=== PATIENT | female | born 1930 | race Caucasian/White ===

== ENCOUNTER 2016-05-29 21:38 | Emergency (ER) | payer MEDICARE, OTHER ==
[~2016-05-29] VITALS: Ht 162.6 cm; Wt 87.8 kg
[~2016-05-29 21:38] MED LIST: AMLO5TAB22 PO; ASPI325T PO; ATEN-100 PO; ENAL20TA81 PO; FOLI1TAB PO; NOVONP2 SQ; SYNT88TA PO; TAMS0.4C4; TERA1CAP3 PO; Z.0.OXYGENDME NC
[2016-05-29 21:42] VITALS: BP 134/61; PULSE 66; RESP 20; TEMP 99; O2SAT 96
[2016-05-29 21:50] VITALS: RESP 18; O2SAT 95
[2016-05-29] MEDS ORDERED: SODIUM CHLORIDE 0.9% FLUSH 5 ML FLUSH IVF PRN (22:00)
[2016-05-29] MEDS ORDERED: FUROSEMIDE 20 MG/2 ML VIAL IVP ONE (22:00)
--- NOTE | 2016-05-29 22:01 | PD ---
HPI . Swelling of her legs Chief Complaint: edema Time Seen by Provider: 21:46 Travel History International Travel<30 days: No Contact w/Intl Traveler<30days: No History of Present Illness HPI Patient presents complaining of swelling of her legs. She denies any difficulty breathing or chest pain. She states that she does not take a fluid pill. In addition, the patient is complaining with difficulty urinating. She reports urinary frequency and hesitancy but denies dysuria or malodorous urine. She has not been running a fever. PFSH Past Medical History Autoimmune Disease: No Heart Rhythm Problems: No Cancer: Yes Cardiovascular Problems: Yes High Cholesterol: Yes Chemotherapy: No Chest Pain: No Congestive Heart Failure: No Diabetes: Yes Diminished Hearing: No Endocrine: Yes Gastrointestinal Disorders: Yes (H/O COLLITIS) Genitourinary: Yes (urinary retention this admission) Hypertension: Yes Immune Disorder: No Implanted Vascular Access Dvce: No Musculoskeletal: No Neurologic: No Psychiatric: No Reproductive: No Respiratory: Yes Radiation Therapy: Yes Thyroid Disease: Yes Menopausal: Yes Past Surgical History Abdominal Surgery: Yes (appendectomy age 21) Appendectomy: Yes Endocrine Surgery: Yes (right parotid gland removed 10 years ago) Gynecologic Surgery: Yes (right breast lumpectomy about 6 yrs ago) Oral Surgery: Yes (tonsillectomy age 12) Tonsillectomy: Yes Other Surgery: Yes (left corotid surgery, March 16, 2013) Social History Alcohol Use: No Tobacco Use: Yes (<1PPD) Substance Use: No Allergies-Medications (Allergen,Severity, Reaction): Coded Allergies: Penicillin (Verified Allergy, Intermediate, Itching, 05/29/16) SWELLING IN HANDS AND FACE Sulfa (Verified Allergy, Intermediate, Hives, 05/29/16) SWELLING IN HANDS AND FACE Ciprofloxacin (Verified Allergy, Unknown, 05/29/16) Clindamycin (Verified Allergy, Unknown, 05/29/16) Metformin (Verified Allergy, Unknown, 05/29/16) Zetia (Verified Allergy, Unknown, 05/29/16) Clonidine (Verified Adverse Reaction, Intermediate, 05/29/16) pt states she can't take this, it caused "very unusual behavior", I found myself on the floor, wrapped in my blanket" Uncoded Allergies: STATINS (Allergy, Severe, 02/21/13) Reported Meds & Prescriptions Reported Meds & Active Scripts Active Lasix (Furosemide) 20 Mg Tab 20 Mg PO DAILY Reported Novolog Inj (Insulin Aspart) 1,000 Unit/10 Ml Vial 0 SQ DIRECTED Sliding Scale as directed. Novolin N Inj (Insulin Human NPH) 1,000 Unit/10 Ml Vial 25 Units SQ AC DINNER Novolin N Inj (Insulin Human NPH) 1,000 Unit/10 Ml Vial 60 Units SQ AC BREAKFAST Levothyroxine (Levothyroxine Sodium) 88 Mcg Tab 88 Mcg PO DAILY Terazosin (Terazosin HCl) 1 Mg Cap 1 Mg PO HS Tamsulosin (Tamsulosin HCl) 0.4 Mg Cap 0.4 Mg PO HS Enalapril (Enalapril Maleate) 20 Mg Tab 20 Mg PO BID Aspirin 81 Mg Tabdr 81 Mg PO DAILY Atenolol 25 Mg Tab 25 Mg PO BID Amlodipine (Amlodipine Besylate) 5 Mg Tab 5 Mg PO BID Review of Systems Except as stated in HPI: all other systems reviewed are Neg General / Constitutional: No: Fever, Chills Cardiovascular: No: Chest Pain or Discomfort Respiratory: No: Shortness of Breath (she has COPD and states that her breathing is no different today than usual.) Gastrointestinal: No: Nausea, Vomiting Genitourinary: Positive: Urgency, Frequency, Hesitancy, No: Dysuria Musculoskeletal: Positive: Edema Physical Exam Narrative GENERAL: Healthy-appearing older woman who is in no acute distress. She is very hard of hearing. SKIN: Warm and dry. HEAD: Atraumatic. Normocephalic. EYES: Pupils equal and round. ENT: No nasal bleeding or discharge. Mucous membranes pink and moist. NECK: Trachea midline. Neck is supple. CARDIOVASCULAR: Regular rate and rhythm. Heart sounds are normal. RESPIRATORY: No accessory muscle use. Lungs are clear with full air movement throughout. GASTROINTESTINAL: Abdomen soft, non-tender, nondistended. There is no abdominal wall edema. MUSCULOSKELETAL: No obvious deformities. Trace pretibial pitting edema. NEUROLOGICAL: Awake and alert. No obvious cranial nerve deficits. Motor grossly within normal limits. Normal speech. PSYCHIATRIC: Appropriate mood and affect; insight and judgment normal. Data Data Last Documented VS Vital Signs Date Time Temp Pulse Resp B/P Pulse Ox O2 Delivery O2 Flow Rate FiO2 05/29/16 21:50 60 20 05/29/16 21:50 95 Room Air 05/29/16 21:42 99.0 134/61 Orders Complete Blood Count With Diff (05/29/16 21:55) Basic Metabolic Panel (Bmp) (05/29/16 21:55) B-Type Natriuretic Peptide (05/29/16 21:55) Ckmb (Isoenzyme) Profile (05/29/16 21:55) Troponin I (05/29/16 21:55) Urinalysis - C+S If Indicated (05/29/16 21:55) Iv Access Insert/Monitor (05/29/16 21:55) Electrocardiogram (05/29/16 21:55) Ecg Monitoring (05/29/16 21:55) Oximetry (05/29/16 21:55) Oxygen Administration (05/29/16 21:55) Chest, Single Ap (05/29/16 21:55) Sodium Chloride 0.9% Flush (Ns Flush) (05/29/16 22:00) Furosemide Inj (Lasix Inj) (05/29/16 22:00) Labs Laboratory Tests Test 05/29/16 05/29/16 22:18 22:50 White Blood Count 9.8 TH/MM3 Red Blood Count 4.63 MIL/MM3 Hemoglobin 13.3 GM/DL Hematocrit 38.7 % Mean Corpuscular Volume 83.7 FL Mean Corpuscular Hemoglobin 28.8 PG Mean Corpuscular Hemoglobin 34.4 % Concent Red Cell Distribution Width 13.4 % Platelet Count 151 TH/MM3 Mean Platelet Volume 12.5 FL Neutrophils (%) (Auto) 61.5 % Lymphocytes (%) (Auto) 23.5 % Monocytes (%) (Auto) 7.6 % Eosinophils (%) (Auto) 3.8 % Basophils (%) (Auto) 3.6 % Neutrophils # (Auto) 6.0 TH/MM3 Lymphocytes # (Auto) 2.3 TH/MM3 Monocytes # (Auto) 0.7 TH/MM3 Eosinophils # (Auto) 0.4 TH/MM3 Basophils # (Auto) 0.4 TH/MM3 CBC Comment DIFF FINAL Differential Comment Sodium Level 142 MEQ/L Potassium Level 3.7 MEQ/L Chloride Level 104 MEQ/L Carbon Dioxide Level 30.1 MEQ/L Anion Gap 8 MEQ/L Blood Urea Nitrogen 23 MG/DL Creatinine 0.93 MG/DL Estimat Glomerular Filtration 57 ML/MIN Rate Random Glucose 243 MG/DL Calcium Level 8.5 MG/DL Total Creatine Kinase 54 U/L Troponin I LESS THAN 0.02 NG/ML B-Type Natriuretic Peptide 83 PG/ML Urine Color STRAW Urine Turbidity CLEAR Urine pH 6.0 Urine Specific [place] 1.007 Urine Protein NEG mg/dL Urine Glucose (UA) 250 mg/dL Urine Ketones NEG mg/dL Urine Occult Blood NEG Urine Nitrite NEG Urine Bilirubin NEG Urine Leukocyte Esterase TRACE Urine RBC 0-2 /hpf Urine WBC 3-5 /hpf Urine Squamous Epithelial 0-5 /hpf Cells Urine Bacteria NONE /hpf Microscopic Urinalysis Comment CULT NOT INDICATED MDM Medical Decision Making Medical Screen Exam Complete: Yes Emergency Medical Condition: Yes Interpretation(s) EKG shows sinus bradycardia. No ST segment elevation or depression. EKG is unchanged from previous. Differential Diagnosis Differential diagnosis includes but is not limited to congestive heart failure, vascular insufficiency, hypoalbuminemia. Narrative Course Patient presents for evaluation of extremity edema. She is also complaining with some urinary symptoms. She states that she frequently has problems with urine. I have ordered an evaluation for CHF. I have also ordered a UA. Last Impressions Chest X-Ray 05/29/162154 Signed Impressions: Service Date/Time: Sunday, May 29, 2016 21:59 - CONCLUSION: No infiltrates seen. Peter Gomez MD CXR independently viewed by me. CBC & BMP Diagram 05/29/16 22:18 CK and troponin are normal. BNP is 83. UA shows trace leukocyte esterase. As she is symptomatic as far as her urine is concerned, I will treat her with Keflex. Diagnosis Primary Impression: Peripheral edema Additional Impression: Increased urinary frequency Patient Instructions: General Instructions, Leg Edema (ED) Scripts Cephalexin (Keflex)500 Mg [id number] Mg PO Q8H #15 CAP Ref 0 Prov:Kavita Jones MD 05/29/16 Furosemide (Lasix)20 Mg Tab20 Mg PO DAILY #30 TAB Ref 0 Prov:Kavita Jones MD 05/29/16 Disposition: 01 DISCHARGE HOME Condition: Stable Kavita Jones MD May 29, 2016 22:01
[2016-05-29] MEDS ORDERED: ENAL20TA PO (22:20)
[2016-05-29] MEDS ORDERED: LEVO88TA2 PO (22:20)
[2016-05-29] MEDS ORDERED: ATEN25TA PO (22:20)
[2016-05-29] MEDS ORDERED: AMLO5TAB2 PO (22:20)
[2016-05-29] MEDS ORDERED: ASPI1TAB69 PO (22:20)
[2016-05-29] MEDS ORDERED: NOVOLOGP2 SQ (22:20)
[2016-05-29] MEDS ORDERED: TAMS0.4C4 PO (22:20)
[2016-05-29] MEDS ORDERED: NOVONP2 SQ ×2 (22:20)
[2016-05-29] MEDS ORDERED: TERA1CAP3 PO (22:20)
--- NOTE | 2016-05-29 22:22 | RADHPO ---
EXAM DATE/TIME: 05/29/2016 21:59 [facility] COMPARISON: No previous studies available for comparison. INDICATIONS : Shortness of breath, bilateral swelling of the ankles. MEDICAL HISTORY : Chronic obstructive pulmonary disease. Emphysema. Cardiovascular disease. Hypertension. Hypercho lesterolemia. SURGICAL HISTORY : Tonsillectomy. Appendectomy. Carotid, right, unspecified. Breast, bilateral, unspecified. ENCOUNTER: Initial ACUITY: 1 day PAIN SCORE: 0/10 LOCATION: Chest. FINDINGS: A single view of the chest demonstrates the lungs to be symmetrically aerated without evidence of mas s, infiltrate or effusion. The cardiomediastinal contours are unremarkable. Osseous structures are intact. CONCLUSION: No infiltrates seen. Peter Gomez MD on May 29, 2016 at 22:20 Board Certified Radiologist. This report was verified electronically.
[2016-05-29 22:28] LABS: BASOPHIL # 0.4 TH/MM3 (0-0.2); BASOPHIL % 3.6 % (0.0-2.0); EOSINOPHIL # 0.4 TH/MM3 (0-0.4); EOSINOPHIL % 3.8 % (0.0-4.0); HEMATOCRIT 38.7 % (35.0-46.0); HEMO FLAGS DIFF FINAL; LYMPH % 23.5 % (9.0-44.0); LYMPHOCYTE # 2.3 TH/MM3 (1.0-4.8); MEAN CELL VOLUME 83.7 FL (80.0-100.0); MEAN CORPUSCULAR HEMOGLOBIN 28.8 PG (27.0-34.0); MEAN CORPUSCULAR HGB CONC 34.4 % (32.0-36.0); MONO % 7.6 % (0.0-8.0); NEUT % 61.5 % (16.0-70.0); PLATELET COUNT 151 TH/MM3 (150-450); RED BLOOD COUNT 4.63 MIL/MM3 (4.00-5.30); RED CELL DISTRIBUTION WIDTH 13.4 % (11.6-17.2); WHITE BLOOD COUNT 9.8 TH/MM3 (4.0-11.0)
[2016-05-29 22:33] LABS: CHLORIDE 104 MEQ/L (98-107); POTASSIUM 3.7 MEQ/L (3.5-5.1); SODIUM (NA) 142 MEQ/L (136-145)
[2016-05-29 22:36] LABS: ANION GAP 8 MEQ/L (5-15); BICARBONATE 30.1 MEQ/L (21.0-32.0); BLOOD UREA NITROGEN 23 MG/DL (7-18)
[2016-05-29 22:40] LABS: GLOMERULAR FILTRATION RATE 57 ML/MIN (>89)
[2016-05-29 22:45] LABS: CREATINE KINASE 54 U/L (26-192)
[2016-05-29] MEDS ORDERED: FURO1TAB62 PO (22:48)
[2016-05-29 22:55] LABS: BLOOD, URINE NEG (NEG); GLUCOSE,URINE 250 mg/dL (NEG); KETONE, URINE NEG (NEG); NITRITE,URINE NEG (NEG)
[2016-05-29 23:02] LABS: RBC, URINE 0-2 /hpf (0-3); URINE COLOR STRAW (YELLW/STRAW)
[2016-05-29 23:03] LABS: COMMENT (UR) CULT NOT INDICATED; CULTURE IF INDICATED CULT NOT INDICATED; SQUAMOUS EPITHELIAL CELL URINE 0-5 /hpf (0-5)
[2016-05-29] MEDS ORDERED: CEPH-460 PO (23:20)
[2016-05-29 23:35] VITALS: BP 147/64; PULSE 58; RESP 18; O2SAT 95
--- NOTE | 2016-05-30 13:13 | EKG ---
Date Performed: 05/29/2016 Time Performed: 22:03:24 PTAGE: 85 years EKG: Sinus bradycardia Normal ECG except for rate Compared to prior tracing no significant abida portillo PREVIOUS TRACING : 07/16/2015 10.44 DOCTOR: Carl Melton Interpretating Date/Time 05/30/2016 13:10:39
== END 2016-05-29 23:36 | disposition home or self-care (01) ==
LOC: PHED 21:38
DX: R60.0 Localized edema (principal); R35.0 Frequency of micturition; E78.00 Pure hypercholesterolemia, unspecified; E11.9 Type 2 diabetes mellitus without complications; I10 Essential (primary) hypertension; F17.210 Nicotine dependence, cigarettes, uncomplicated
CPT/HCPCS: 71010; 80048; 81001; 82550; 83880; 84484; 85025; 93005; 96374; 99284; J1940

== ENCOUNTER 2016-11-20 20:27 | Emergency (ER) | payer OTHER ==
[~2016-11-20] VITALS: Ht 162.6 cm; Wt 83.9 kg
[~2016-11-20 20:27] MED LIST changes: +AMLO5TAB2 PO; -AMLO5TAB22 PO; +ASPI1TAB69 PO; -ASPI325T PO; -ATEN-100 PO; +ATEN25TA PO; +CEPH-460 PO; +ENAL20TA PO; -ENAL20TA81 PO; -FOLI1TAB PO; +FURO1TAB62 PO; +LEVO88TA2 PO; +NOVOLOGP2 SQ; -SYNT88TA PO; -TAMS0.4C4; +TAMS0.4C4 PO; -Z.0.OXYGENDME NC
[2016-11-20 20:40] VITALS: BP 154/70; PULSE 65; RESP 18; TEMP 98.4; O2SAT 96
[2016-11-20] MEDS ORDERED: SODIUM CHLORIDE 0.9% FLUSH 10 ML FLUSH IV FLUSH PRN (21:00)
--- NOTE | 2016-11-20 21:02 | PD ---
HPI Chief Complaint: Complaint Time Seen by Provider: 20:50 Travel History International Travel<30 days: No Contact w/Intl Traveler<30days: No Traveled to known affect area: No History of Present Illness HPI 86-year-old female with history of diabetes, here for evaluation of increased urinary frequency, and feeling as though she is not fully emptying her bladder. The patient also reports a 6 pound weight gain over the last 2 days. Urinary symptoms of been going on for 2 days. She denies abdominal pain. No fevers or chills. No chest pain or dyspnea. No known history of CHF. She reports history of urinary retention for which a Lau catheter was placed and she followed up with urologist Dr. Acosta. 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) Endocrine: Yes Gastrointestinal Disorders: Yes (H/O COLLITIS) Genitourinary: Yes (urinary retention this admission) Hypertension: Yes Immune Disorder: No Implanted Vascular Access Dvce: No Musculoskeletal: No Neurologic: No Psychiatric: No Reproductive: No Respiratory: Yes Radiation Therapy: Yes Thyroid Disease: Yes ?: Not Menopausal: Yes Past Surgical History Abdominal Surgery: Yes (appendectomy age 21) Appendectomy: Yes Endocrine Surgery: Yes (right parotid gland removed 10 years ago) Gynecologic Surgery: Yes (right breast lumpectomy about 6 yrs ago) Oral Surgery: Yes (tonsillectomy age 12) Tonsillectomy: Yes Other Surgery: Yes (left corotid surgery, March 16, 2013) Social History Alcohol Use: No Tobacco Use: No (QUIT 2015) Substance Use: No Allergies-Medications (Allergen,Severity, Reaction): Coded Allergies: Penicillin (Verified Allergy, Intermediate, Itching, 11/20/16) SWELLING IN HANDS AND FACE Sulfa (Verified Allergy, Intermediate, Hives, 11/20/16) SWELLING IN HANDS AND FACE Ciprofloxacin (Verified Allergy, Unknown, 11/20/16) Clindamycin (Verified Allergy, Unknown, 11/20/16) Metformin (Verified Allergy, Unknown, 11/20/16) Zetia (Verified Allergy, Unknown, 11/20/16) Clonidine (Verified Adverse Reaction, Intermediate, 11/20/16) pt states she can't take this, it caused "very unusual behavior", I found myself on the floor, wrapped in my blanket" Uncoded Allergies: STATINS (Allergy, Severe, 02/21/13) Reported Meds & Prescriptions Reported Meds & Active Scripts Active Macrobid (Nitrofurantoin Monoh/Nitrofur Macro) 100 Mg Cap 100 Mg PO BID 7 Days Reported Aspir-81 (Aspirin) 81 Mg Tabdr 1 Tab PO DAILY Acarbose 50 Mg Tab 50 Mg PO BID Vitamin D (Cholecalciferol) 2,000 Unit Tab 5,000 Mg PO 3XS WEEK Novolin N Inj (Insulin Human NPH) 1,000 Unit/10 Ml Vial 22 Units SQ BID Levothyroxine (Levothyroxine Sodium) 88 Mcg Tab 88 Mcg PO DAILY Terazosin (Terazosin HCl) 1 Mg Cap 1 Mg PO HS Tamsulosin (Tamsulosin HCl) 0.4 Mg Cap 0.4 Mg PO HS Enalapril (Enalapril Maleate) 20 Mg Tab 20 Mg PO BID Atenolol 25 Mg Tab 25 Mg PO BID Amlodipine (Amlodipine Besylate) 5 Mg Tab 5 Mg PO BID Review of Systems Except as stated in HPI: all other systems reviewed are Neg Physical Exam Narrative GENERAL: Well-developed, well-nourished, no apparent distress. SKIN: Focused skin assessment warm/dry. No rash. HEAD: Atraumatic. Normocephalic. EYES: Pupils equal and round. No scleral icterus. No injection or drainage. ENT: Mucous membranes pink and moist. CARDIOVASCULAR: Regular rate and rhythm. No murmur appreciated. RESPIRATORY: No accessory muscle use. Clear to auscultation. Breath sounds equal bilaterally. GASTROINTESTINAL: Abdomen soft, non-tender, nondistended. Normal bowel sounds. No hernias. MUSCULOSKELETAL: No obvious deformities. No clubbing. No cyanosis. No edema. NEUROLOGICAL: Awake and alert. No obvious cranial nerve deficits. Motor grossly within normal limits. Normal speech. PSYCHIATRIC: Appropriate mood and affect; insight and judgment normal. Data Data Last Documented VS Vital Signs Date Time Temp Pulse Resp B/P Pulse Ox O2 Delivery O2 Flow Rate FiO2 11/20/16 21:44 63 18 132/58 94 Room Air 11/20/16 20:40 98.4 Orders Complete Blood Count With Diff (11/20/16 20:59) Comprehensive Metabolic Panel (11/20/16 20:59) Urinalysis - C+S If Indicated (11/20/16 20:59) Iv Access Insert/Monitor (11/20/16 20:59) Ecg Monitoring (11/20/16 20:59) Oximetry (11/20/16 20:59) Sodium Chloride 0.9% Flush (Ns Flush) (11/20/16 21:00) B-Type Natriuretic Peptide (11/20/16 20:59) Urinary Catheter Insert/Apply (11/20/16 20:59) Urine Culture (11/20/16 21:20) Ceftriaxone Inj (Rocephin Inj) (11/20/16 21:45) Labs Laboratory Tests Test 11/20/16 11/20/16 21:00 21:20 White Blood Count 8.8 TH/MM3 Red Blood Count 4.57 MIL/MM3 Hemoglobin 13.4 GM/DL Hematocrit 38.8 % Mean Corpuscular Volume 85.0 FL Mean Corpuscular Hemoglobin 29.3 PG Mean Corpuscular Hemoglobin 34.5 % Concent Red Cell Distribution Width 12.8 % Platelet Count 161 TH/MM3 Mean Platelet Volume 12.9 FL Neutrophils (%) (Auto) 64.0 % Lymphocytes (%) (Auto) 24.9 % Monocytes (%) (Auto) 7.6 % Eosinophils (%) (Auto) 0.0 % Basophils (%) (Auto) 3.5 % Neutrophils # (Auto) 5.6 TH/MM3 Lymphocytes # (Auto) 2.2 TH/MM3 Monocytes # (Auto) 0.7 TH/MM3 Eosinophils # (Auto) 0.0 TH/MM3 Basophils # (Auto) 0.3 TH/MM3 CBC Comment DIFF FINAL Differential Comment Sodium Level 141 MEQ/L Potassium Level 3.8 MEQ/L Chloride Level 106 MEQ/L Carbon Dioxide Level 28.8 MEQ/L Anion Gap 6 MEQ/L Blood Urea Nitrogen 25 MG/DL Creatinine 1.00 MG/DL Estimat Glomerular Filtration 53 ML/MIN Rate Random Glucose 279 MG/DL Calcium Level 8.8 MG/DL Total Bilirubin 0.5 MG/DL Aspartate Amino Transf 12 U/L (AST/SGOT) Alanine Aminotransferase 21 U/L (ALT/SGPT) Alkaline Phosphatase 89 U/L B-Type Natriuretic Peptide 90 PG/ML Total Protein 6.5 GM/DL Albumin 3.5 GM/DL Urine Color YELLOW Urine Turbidity CLEAR Urine pH 5.5 Urine Specific [place] 1.015 Urine Protein NEG mg/dL Urine Glucose (UA) 1000 OR GREATER mg/dL Urine Ketones NEG mg/dL Urine Occult Blood NEG Urine Nitrite NEG Urine Bilirubin NEG Urine Leukocyte Esterase TRACE Urine RBC 0-3 /hpf Urine WBC 15-19 /hpf Urine WBC Clumps MOD Urine Squamous Epithelial 0-5 /hpf Cells Urine Bacteria MOD /hpf Microscopic Urinalysis Comment CULTURE INDICATED MDM Medical Decision Making Medical Screen Exam Complete: Yes Emergency Medical Condition: Yes Differential Diagnosis UTI, urinary retention, cystitis, CHF Narrative Course Vital signs show heart rate 65, blood pressure 154/70, pulse ox 96% on room air , oral temp of 98.4F. CBC shows WBC 8.8, hemoglobin 13.4, hematocrit 38.8, platelets 161. CMP is remarkable for random glucose 280, otherwise essentially unremarkable. BNP is 90. UA shows 1000 or greater glucose, trace leukocyte esterase, 15-19 wbc's, moderate WBC clumps, moderate bacteria. This was a catheterized specimen. Bicarb is 28.8. The patient is not in DKA. When urine was catheterized, only 200 cc of urine output was obtained. Catheter was removed as the patient is not likely retaining urine. Her symptoms are more likely related to UTI. She was given a dose of IV Rocephin here in the emergency department OB discharged home with a perception for Macrobid. Patient made aware of all findings. She is resting comfortably. Her abdominal exam is benign. She overall feels well and drove herself to the emergency department. I believe she is stable for discharge home with outpatient follow-up with her primary care physician or her senior clinical consultant this week. Patient informed on when to return to the emergency department. She verbalizes understanding and agreement with plan. Diagnosis Primary Impression: UTI (urinary tract infection) Qualified Code: N39.0 - Urinary tract infection without hematuria, site unspecified Additional Impression: Hyperglycemia Referrals: Primary Care Physician 3 days Additional Instructions: Follow-up with your primary care physician or your senior clinical consultant this week. Take antibiotic as prescribed. Return to the emergency department if worsening symptoms or any other concerns as discussed. Scripts Nitrofurantoin Monohydrate Macrocrystals (Macrobid)100 Mg [id number] Mg PO BID 7 Days Ref 0 Prov:Ulises Angeles MD 11/20/16 Disposition: 01 DISCHARGE HOME Condition: Stable Ulises Angeles MD Nov 20, 2016 21:02
[2016-11-20 21:21] LABS: AUTOMATED NEUTROPHIL # 5.6 TH/MM3 (1.8-7.7); BASOPHIL # 0.3 TH/MM3 (0-0.2); BASOPHIL % 3.5 % (0.0-2.0); HEMATOCRIT 38.8 % (35.0-46.0); LYMPH % 24.9 % (9.0-44.0); LYMPHOCYTE # 2.2 TH/MM3 (1.0-4.8); MEAN CORPUSCULAR HEMOGLOBIN 29.3 PG (27.0-34.0); MEAN CORPUSCULAR HGB CONC 34.5 % (32.0-36.0); MONO % 7.6 % (0.0-8.0); PLATELET COUNT 161 TH/MM3 (150-450); RED BLOOD COUNT 4.57 MIL/MM3 (4.00-5.30); RED CELL DISTRIBUTION WIDTH 12.8 % (11.6-17.2); WHITE BLOOD COUNT 8.8 TH/MM3 (4.0-11.0)
[2016-11-20 21:24] LABS: CHLORIDE 106 MEQ/L (98-107); POTASSIUM 3.8 MEQ/L (3.5-5.1); SODIUM (NA) 141 MEQ/L (136-145)
[2016-11-20 21:27] LABS: BLOOD, URINE NEG (NEG); KETONE, URINE NEG (NEG); NITRITE,URINE NEG (NEG); PH, URINE 5.5 (5.0-8.5)
[2016-11-20 21:28] LABS: ANION GAP 6 MEQ/L (5-15); BICARBONATE 28.8 MEQ/L (21.0-32.0); BLOOD UREA NITROGEN 25 MG/DL (7-18)
[2016-11-20 21:31] LABS: ALT (GPT) 21 U/L (10-53); AST (GOT) 12 U/L (15-37); GLOMERULAR FILTRATION RATE 53 ML/MIN (>89)
[2016-11-20 21:33] LABS: TOTAL BILIRUBIN ADULT 0.5 MG/DL (0.2-1.0)
[2016-11-20 21:34] LABS: ALKALINE PHOSPHATASE 89 U/L (45-117)
[2016-11-20 21:34] LABS: GLUCOSE,URINE 1000 OR GREATER mg/dL (NEG)
[2016-11-20] MEDS ORDERED: ACAR50TA PO (21:34)
[2016-11-20] MEDS ORDERED: VITA20003 PO (21:34)
[2016-11-20] MEDS ORDERED: ASPI81TA81 PO (21:34)
[2016-11-20 21:35] VITALS: O2SAT 96
[2016-11-20 21:35] LABS: HEMO FLAGS DIFF FINAL
[2016-11-20 21:37] LABS: BACTERIA, URINE MOD /hpf; RBC, URINE 0-3 /hpf (0-3); SQUAMOUS EPITHELIAL CELL URINE 0-5 /hpf (0-5); URINE COLOR YELLOW (YELLW/STRAW); WBC, URINE 15-19 /hpf (0-5)
[2016-11-20 21:38] LABS: COMMENT (UR) CULTURE INDICATED; CULTURE IF INDICATED CULTURE INDICATED
[2016-11-20 21:44] VITALS: BP 132/58; PULSE 63; RESP 18; O2SAT 94
[2016-11-20] MEDS ORDERED: cefTRIAXone INJ 1,000 MG in SODIUM CHLORIDE 0.9% INJ 100 ML IV ONE (21:45)
[2016-11-20] MEDS ORDERED: MACR100C2 PO (21:46)
[2016-11-20] MEDS ORDERED: INSULIN HUMAN REGULAR 1,000 UNITS/10 ML VIAL IV PUSH ONE (22:00)
[2016-11-20 22:52] VITALS: BP 148/58; PULSE 58; RESP 16; O2SAT 96
== END 2016-11-20 23:06 | disposition home or self-care (01) ==
LOC: PHED 20:27
DX: N39.0 Urinary tract infection, site not specified (principal); R31.9 Hematuria, unspecified; E11.65 Type 2 diabetes mellitus with hyperglycemia; I10 Essential (primary) hypertension; J43.9 Emphysema, unspecified; E78.00 Pure hypercholesterolemia, unspecified; Z79.4 Long term (current) use of insulin; Z79.82 Long term (current) use of aspirin
CPT/HCPCS: 51702; 80053; 81001; 83880; 85025; 87077; 87086; 87186; 96365; 96375; 99284; J0696; J1815

== ENCOUNTER 2017-08-15 01:24 | Emergency (ER) | payer OTHER ==
[~2017-08-15] VITALS: Ht 160 cm; Wt 82.0 kg
[~2017-08-15 01:24] MED LIST changes: +ACAR50TA PO; -ASPI1TAB69 PO; +ASPI81TA81 PO; -CEPH-460 PO; -FURO1TAB62 PO; +MACR100C2 PO; -NOVOLOGP2 SQ; +VITA20003 PO
[2017-08-15 01:39] VITALS: BP 146/67; PULSE 81; RESP 18; TEMP 98.3; O2SAT 95
[2017-08-15] MEDS ORDERED: CORTI10A LEFT EAR (02:06)
--- NOTE | 2017-08-15 02:06 | PD ---
HPI Chief Complaint: ENT Complaint Time Seen by Provider: 01:50 Travel History International Travel<30 days: No Contact w/Intl Traveler<30days: No Traveled to known affect area: No History of Present Illness HPI 86-year-old female arrives with left otalgia and left bloody otorrhea. It was first noticed today. Symptoms were intermittent throughout the day. The patient woke up with left eye pain. She also describes some sore throat primarily on the left side. She denies fever. No loss of hearing on the left side. No right ear complaint. No purulent debris or difficulty opening the left thigh pain. 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) Endocrine: Yes Gastrointestinal Disorders: Yes (H/O COLITIS) Genitourinary: Yes (urinary retention ) Hypertension: Yes Immune Disorder: No Implanted Vascular Access Dvce: No Musculoskeletal: No Neurologic: No Psychiatric: No Reproductive: No Respiratory: Yes Immunizations Current: Yes Radiation Therapy: Yes Thyroid Disease: Yes ?: Not Menopausal: Yes Past Surgical History Abdominal Surgery: Yes (appendectomy age 21) Appendectomy: Yes Endocrine Surgery: Yes (right parotid gland removed ) Gynecologic Surgery: Yes (right breast lumpectomy about 6 yrs ago) Oral Surgery: Yes (tonsillectomy age 12) Tonsillectomy: Yes Other Surgery: Yes (left corotid surgery, March 16, 2013) Social History Alcohol Use: No Tobacco Use: No (QUIT 2015) Substance Use: No Allergies-Medications (Allergen,Severity, Reaction): Coded Allergies: Sulfa (Sulfonamide Antibiotics) (Unverified Allergy, Intermediate, Hives, 08/15/17) SWELLING IN HANDS AND FACE penicillin G (Unverified Allergy, Intermediate, Itching, 08/15/17) SWELLING IN HANDS AND FACE ciprofloxacin (Unverified Allergy, Unknown, 08/15/17) clindamycin (Unverified Allergy, Unknown, 08/15/17) ezetimibe (Unverified Allergy, Unknown, 08/15/17) metformin (Unverified Allergy, Unknown, 08/15/17) clonidine (Unverified Adverse Reaction, Intermediate, 08/15/17) pt states she can't take this, it caused "very unusual behavior", I found myself on the floor, wrapped in my blanket" Uncoded Allergies: STATINS (Allergy, Severe, 02/21/13) Reported Meds & Prescriptions Reported Meds & Active Scripts Active Macrobid (Nitrofurantoin Monoh/Nitrofur Macro) 100 Mg Cap 100 Mg PO BID 7 Days Reported Aspir-81 (Aspirin) 81 Mg Tabdr 1 Tab PO DAILY Acarbose 50 Mg Tab 50 Mg PO BID Vitamin D (Cholecalciferol) 2,000 Unit Tab 5,000 Mg PO 3XS WEEK Novolin N Inj (Insulin Human NPH) 1,000 Unit/10 Ml Vial 22 Units SQ BID Levothyroxine (Levothyroxine Sodium) 88 Mcg Tab 88 Mcg PO DAILY Terazosin (Terazosin HCl) 1 Mg Cap 1 Mg PO HS Tamsulosin (Tamsulosin HCl) 0.4 Mg Cap 0.4 Mg PO HS Enalapril (Enalapril Maleate) 20 Mg Tab 20 Mg PO BID Atenolol 25 Mg Tab 25 Mg PO BID Amlodipine (Amlodipine Besylate) 5 Mg Tab 5 Mg PO BID Review of Systems General / Constitutional: No: Fever HENT: No: Headaches Cardiovascular: No: Diaphoresis Physical Exam Narrative GENERAL: 86-year-old female pleasant well-nourished well-developed Vital Signs Date Time Temp Pulse Resp B/P (MAP) Pulse Ox O2 Delivery O2 Flow Rate FiO2 08/15/17 01:39 98.3 81 18 146/67 (93) 95 SKIN: Warm and dry. HEAD: Atraumatic. Normocephalic. EYES: Pupils equal and round. No scleral icterus. No injection or drainage. There is a hordeolum of left lower eyelid. No conjunctivitis. No periorbital cellulitis. ENT: No nasal bleeding or discharge. Mucous membranes pink and moist. The tympanic membrane left side is intact with clear visualization of bony landmarks. External ear is erythematous minimally edematous and tender. The right ear is normal. No mastoid tenderness on either side. NECK: Trachea midline. No JVD. CARDIOVASCULAR: Regular rate and rhythm. RESPIRATORY: No accessory muscle use. Clear to auscultation. Breath sounds equal bilaterally. GASTROINTESTINAL: Abdomen soft, non-tender, nondistended. Hepatic and splenic margins not palpable. MUSCULOSKELETAL: Extremities without clubbing, cyanosis, or edema. No obvious deformities. NEUROLOGICAL: Awake and alert. No obvious cranial nerve deficits. Motor grossly within normal limits. Five out of 5 muscle strength in the arms and legs. Normal speech. Data Data Last Documented VS Vital Signs Date Time Temp Pulse Resp B/P (MAP) Pulse Ox O2 Delivery O2 Flow Rate FiO2 08/15/17 01:39 98.3 81 18 146/67 (93) 95 MDM Medical Decision Making Medical Screen Exam Complete: Yes Emergency Medical Condition: Yes Medical Record Reviewed: Yes Differential Diagnosis Otitis externa, otitis media, cystitis, periorbital cellulitis, orbital cellulitis Narrative Course Patient has otitis externa. There is a hordeolum on the left lower eyelid. At home care discussed. Scripts as below. Diagnosis Primary Impression: Otitis externa Qualified Codes: H60.502 - Unspecified acute noninfective otitis externa, left ear Additional Impression: Hordeolum externum left lower eyelid Referrals: Primary Care Physician 1 day Med/Other Pt SpecificInfo: Prescription(s) given Scripts [id number] Otic Drops (Xynsxrst-Vhadpfxyd-JJ Otic Drops) 1 % Soln 4 DROP LEFT EAR QID for Infection for 5 Days, #1 BOTTLE 0 Refills Prov: Cody Villarreal MD 08/15/17 Disposition: 01 DISCHARGE HOME Condition: Stable Cody Villarreal MD Aug 15, 2017 02:06
[2017-08-15] MEDS ORDERED: LIDOCAINE VISCOUS 2% SOLN 15 ML UDC PO STA (02:14)
[2017-08-15] MEDS ORDERED: ACETAMINOPHEN/HYDROcodone 325 MG/5 MG TAB PO ONE (02:15)
== END 2017-08-15 02:57 | disposition home or self-care (01) ==
LOC: PHED 01:24
DX: H60.92 Unspecified otitis externa, left ear (principal); H00.015 Hordeolum externum left lower eyelid; E11.9 Type 2 diabetes mellitus without complications; E78.00 Pure hypercholesterolemia, unspecified; I10 Essential (primary) hypertension; J44.9 Chronic obstructive pulmonary disease, unspecified; E07.9 Disorder of thyroid, unspecified; Z87.891 Personal history of nicotine dependence
CPT/HCPCS: 99283

== ENCOUNTER 2017-11-11 01:02 | Observation (INO) ==
[2017-11-11] MEDS ORDERED: Sod Chloride 0.9% Inj 1,000 ML IV.SIG ONE ×2 (01:27→02:57)
[2017-11-11 01:59] LABS: Chloride 106 meq/L (98-107); Potassium 3.9 meq/L (3.5-5.1); Sodium 139 meq/L (136-145)
[2017-11-11 02:02] LABS: Albumin 3.5 g/dL (3.4-5.0); Anion Gap 8 meq/L (5-15); Calcium 9.1 mg/dL (8.5-10.1); Carbon Dioxide 25.1 meq/L (21.0-32.0)
[2017-11-11 02:03] LABS: Blood Urea Nitrogen 31 mg/dL (7-18); Glucose,Random 270 mg/dL (74-106)
[2017-11-11 02:06] LABS: Alanine Aminotransferase 16 U/L (10-53); Aspartate Aminotransferase 10 U/L (15-37); Glomerular Filtration Rate 55 mL/min (>89)
[2017-11-11 02:07] LABS: Total Protein 6.7 g/dL (6.4-8.2)
[2017-11-11 02:08] LABS: Alkaline Phosphatase 85 U/L (45-117)
[2017-11-11 02:20] LABS: Baso # (Auto) 0.1 th/mm3 (0.0-0.2); Baso % (Auto) 0.7 % (0.0-2.0); Eos % (Auto) 0.1 % (0.0-4.0); Hematocrit 39.5 % (35.0-46.0); Hemoglobin 12.8 gm/dL (11.6-15.3); Lymph # (Auto) 1.7 th/mm3 (1.0-4.8); Lymph % (Auto) 16.3 % (9.0-44.0); Mean Corpuscular HGB Conc 32.5 % (32.0-36.0); Mean Corpuscular Hemoglobin 27.4 pg (27.0-34.0); Mean Corpuscular Volume 84.1 fL (80.0-100.0); Mean Platelet Volume 13.2 fL (7.0-11.0); Mono # (Auto) 0.6 th/mm3 (0.0-0.9); Mono % (Auto) 6.1 % (0.0-8.0); Neut # (Auto) 7.9 th/mm3 (1.8-7.7); Neut % (Auto) 76.8 % (16.0-70.0); Platelet Count 144 th/mm3 (150-450); Red Blood Count 4.69 mil/mm3 (4.00-5.30); Red Cell Distribution Width 14.4 % (11.6-17.2); White Blood Count 10.3 th/mm3 (4.0-11.0)
--- NOTE | 2017-11-11 02:27 | CT ---
EXAM DATE: 11/11/2017 1:50 AM EDT AGE/SEX: 87 years / Female INDICATIONS: Lower abdominal pain and rectal bleeding. CLINICAL DATA: This is the patient's initial encounter. Patient reports that signs and symptoms have been present for 1 day and indicates a pain score of 5/10. MEDICAL/SURGICAL HISTORY: Hypertension. Diabetes. Colitis. Appendectomy. RADIATION DOSE: 21.23 CTDI (mGy) COMPARISON: [facility], CTA ABDOMEN & PELVIS W 3D RECON, 01/23/2016. . TECHNIQUE: Multiple contiguous axial images were obtained through the abdomen. Images were obtained using multiple row detector helical technique. Using automated exposure control and adjustment of the mA and/or kV according to patient size, radiation dose was kept as low as reasonably achievable to o btain optimal diagnostic quality images. DICOM format image data is available electronically for rev iew and comparison. FINDINGS: Lower Lungs: The visualized lower lungs are clear. Liver: The liver has a homogeneous density without space-occupying lesion. Several gallstones. There is no dilation of the biliary tree. Spleen: Homogeneous density without enlargement. Pancreas: Unremarkable without mass or calcification. Kidneys: Normal in size and shape. No evidence of mass or hydronephrosis. Adrenal Glands: Unremarkable. Aorta: Atherosclerotic changes without aneurysmal dilation. Bowel/Mesentery: Diverticulosis of the descending and sigmoid colon. Abdominal Wall: Intact. Retroperitoneum: No evidence of adenopathy in the retrocrural, para-aortic, or deep pelvic regions. Bladder: Contours are smooth. Reproductive Organs: No abnormal masses or calcifications seen. Inguinal: The inguinal region is unremarkable without evidence of adenopathy. Bony Structures: Unremarkable. CONCLUSION: 1. Diverticulosis without diverticulitis. 2. Cholelithiasis. Electronically signed by: Antonio Lancaster MD 11/11/2017 2:26 AM EDT
--- NOTE | 2017-11-11 02:44 | ED ---
HPI General Chief complaint: GI Bleed Stated complaint: Diarrhea x 2 hrs,now rectal bleeding Time Seen by Provider: 11/11/17 01:20 Source: patient Mode of arrival: ambulatory Limitations: no limitations History of Present Illness HPI Narrative: Patient is an 87-year-old female who presents the emergency room for evaluation of rectal bleeding. Patient reports that she noticed bleeding in her rectum after dinner today. Patient reports that she ate her dinner, she then began to feel nauseous and vomiting. Patient reports that this was followed by multiple episodes of diarrhea. Patient reports that she began to notice that her diarrhea was bright red. Patient does take a baby aspirin per day, patient complains of crampy lower abdominal pain. Patient reports that she has had GI bleeding in the past, reports that she was admitted to the hospital 2 years ago for this and had an EGD as well as a colonoscopy which was benign. Patient reports that she has not followed up with a casing puller since then as a "did nothing for me." Patient reports that nothing is making symptoms better or worse, patient concerned for the levi red blood in her stool Related Data Home Medications Medication Instructions Recorded Confirmed acarbose 50 mg PO BID 11/11/17 11/11/17 amlodipine 5 mg PO DAILY 11/11/17 11/11/17 aspirin [Aspir-81] 81 mg PO DAILY 11/11/17 11/11/17 atenolol 25 mg PO BID 11/11/17 11/11/17 enalapril maleate 20 mg PO BID 11/11/17 11/11/17 insulin NPH isoph U-100 human 42 unit SUB-Q QPM 11/11/17 11/11/17 [Novolin N NPH U-100 Insulin] levothyroxine 88 mcg PO DAILY 11/11/17 11/11/17 tamsulosin 0.4 mg PO DAILY 11/11/17 11/11/17 terazosin 1 mg PO BID 11/11/17 11/11/17 Allergies Allergy/AdvReac Type Severity Reaction Status Date / Time penicillin G Allergy Intermediate Itching Verified 11/11/17 02:07 Sulfa (Sulfonamide Allergy Intermediate Hives Verified 11/11/17 02:07 Antibiotics) ciprofloxacin Allergy Unknown Altered Verified 11/11/17 02:07 Sense of Taste clindamycin Allergy Unknown Altered Verified 11/11/17 02:07 Sense of Taste ezetimibe Allergy Unknown Altered Verified 11/11/17 02:07 Sense of Taste metformin Allergy Unknown Altered Verified 11/11/17 02:07 Sense of Taste clonidine AdvReac Intermediate Altered Verified 11/11/17 02:07 Sense of Taste STATINS Allergy Severe Altered Uncoded 11/11/17 02:07 Sense of Taste Review of Systems Except as stated in HPI: all other systems reviewed are negative [facility] Medical History Medical History Abnormal stools (Acute) Appendicitis (Acute) Asthma (Acute) Breast cancer (Acute) Carotid artery disease (Acute) Colitis (Acute) Diabetes (Acute) Diminished hearing (Acute) High blood cholesterol (Acute) Hypertension (Acute) Menopause (Acute) Thyroid disease (Acute) Urinary retention (Acute) Surgical History Surgical History H/O lumpectomy (Acute) History of parotid gland removal (Acute) Hx of tonsillectomy (Acute) Social History Social History Second Hand Smoke Exposure: No Smoking Status: Former smoker Tobacco Type: Cigarettes How Often Do You Have a Drink Containing Alcohol: Never Recent Travel in [place] within the Last 8 Weeks: No Recent Out of Country Travel within the Last 8 Weeks: No Immunization History Tetanus Immunization: <5 Years Hx Influenza Vaccine This Season: No Exam Narrative Exam Narrative: GENERAL: moderate distress SKIN: Focused skin assessment warm/dry. HEAD: Atraumatic. Normocephalic. EYES: Pupils equal and round. No scleral icterus. No injection or drainage. ENT: No nasal bleeding or discharge. Mucous membranes pink and moist. NECK: Trachea midline. No JVD. CARDIOVASCULAR: Regular rate and rhythm. No murmur appreciated. RESPIRATORY: No accessory muscle use. Clear to auscultation. Breath sounds equal bilaterally. GASTROINTESTINAL: Abdomen soft, non-tender, nondistended. Hepatic and splenic margins not palpable. Rectal exam performed with RN at bedside, patient with heme positive stool with bright red blood in rectum MUSCULOSKELETAL: No obvious deformities. No clubbing. No cyanosis. No edema. NEUROLOGICAL: Awake and alert. No obvious cranial nerve deficits. Motor grossly within normal limits. Normal speech. PSYCHIATRIC: Appropriate mood and affect; insight and judgment normal. Course Initial Documented Vital Signs Temperature 97.6 F 11/11/17 01:03 Pulse Rate 78 11/11/17 01:03 Respiratory Rate 18 11/11/17 01:03 Blood Pressure 156/70 H 11/11/17 01:03 Pulse Oximetry 96 11/11/17 01:03 Last Documented Vital Signs Temperature 97.6 F 11/11/17 01:03 Pulse Rate 78 11/11/17 01:48 Respiratory Rate 18 11/11/17 01:03 Blood Pressure 156/70 H 11/11/17 01:03 Pulse Oximetry 96 11/11/17 02:00 Medical Decision Making MDM Narrative Medical decision making narrative: During the course of the patients emergency department visit, the patients history, examination, and differential diagnosis were reviewed with the patient. The patient was placed on a plush cutter with oximetry and frequent blood pressure monitoring. The patient had an IV access obtained and blood work sent for analysis. The patients laboratory studies were reviewed and remarkable for a hgb of 12.8, hct 39.5, platelets of 144 Sodium 139, glucose 270, bun 31, cr 0.96 Radiology studies were reviewed and remarkable for: Ct of abdomen and pelvis: diverticulosis without diverticulitis Plan to observe patient in the hospital for serial H&H's. Patient is hemodynamically stable at this point. case reviewed with Dr. Medeiros who accepts pt to service Differential Diagnosis Differential Diagnosis: GI bleed, hemorrhoids, anemia, colitis, diverticulitis Medical Records Medical records reviewed: Yes I reviewed the patient's medical records. Lab Data Lab results reviewed: Yes I reviewed the patient's lab results. Result diagrams: 11/11/17 01:35 11/11/17 01:35 Lab Results 11/11/17 11/11/17 Range/Units 01:35 01:35 CBC w Diff Auto diff final WBC 10.3 (4.0-11.0) th/mm3 RBC 4.69 (4.00-5.30) mil/mm3 Hgb 12.8 (11.6-15.3) gm/dL Hct 39.5 (35.0-46.0) % MCV 84.1 (80.0-100.0) fL MCH 27.4 (27.0-34.0) pg MCHC 32.5 (32.0-36.0) % RDW 14.4 (11.6-17.2) % Plt Count 144 L (150-450) th/mm3 MPV 13.2 H (7.0-11.0) fL Neut % (Auto) 76.8 H (16.0-70.0) % Lymph % (Auto) 16.3 (9.0-44.0) % Dillon % (Auto) 6.1 (0.0-8.0) % Eos % (Auto) 0.1 (0.0-4.0) % Baso % (Auto) 0.7 (0.0-2.0) % Neut # (Auto) 7.9 H (1.8-7.7) th/mm3 Lymph # (Auto) 1.7 (1.0-4.8) th/mm3 Dillon # (Auto) 0.6 (0.0-0.9) th/mm3 Eos # (Auto) 0.0 (0.0-0.4) th/mm3 Baso # (Auto) 0.1 (0.0-0.2) th/mm3 WBC Differential . Differential Comment . Sodium 139 (136-145) meq/L Potassium 3.9 (3.5-5.1) meq/L Chloride 106 (98-107) meq/L Carbon Dioxide 25.1 (21.0-32.0) meq/L Anion Gap 8 (5-15) meq/L BUN 31 H (7-18) mg/dL Creatinine 0.96 (0.50-1.00) mg/dL Estimated GFR 55 L (>89) mL/min Random Glucose 270 H (74-106) mg/dL Calcium 9.1 (8.5-10.1) mg/dL Total Bilirubin 0.6 (0.2-1.0) mg/dL AST 10 L (15-37) U/L ALT 16 (10-53) U/L Alkaline Phosphatase 85 (45-117) U/L Total Protein 6.7 (6.4-8.2) g/dL Albumin 3.5 (3.4-5.0) g/dL Imaging Data Attestation: I personally reviewed and interpreted this imaging study as follows : Radiologist's impression: ITS Impressions Abdomen/Pelvis CT 11/11/17 01:27 CONCLUSION: 1. Diverticulosis without diverticulitis. 2. Cholelithiasis. Discharge Plan Discharge Disposition Patient Disposition: 30 Still Patient Discharge Condition Condition: Stable Physicians Team ED Provider: [place] Hernandez Primary Care Provider: Henrry Viveros Rxs /Orders / Referrals /Forms Prescriptions: No Action acarbose 50 mg Tablet 50 mg PO BID RF: 0 atenolol 25 mg Tablet 25 mg PO BID RF: 0 amlodipine 5 mg Tablet 5 mg PO DAILY RF: 0 aspirin [Aspir-81] 81 mg Tablet,Delayed Release (Dr/Ec) 81 mg PO DAILY RF: 0 enalapril maleate 20 mg Tablet 20 mg PO BID RF: 0 insulin NPH isoph U-100 human [Novolin N NPH U-100 Insulin] 100 unit/mL Suspension 42 unit SUB-Q QPM RF: 0 terazosin 1 mg Capsule 1 mg PO BID RF: 0 tamsulosin 0.4 mg Capsule,Extended Release 24hr 0.4 mg PO DAILY RF: 0 levothyroxine 88 mcg Capsule 88 mcg PO DAILY RF: 0 Discharge Interventions Interventions: Vital Signs Last Done: 11/11/17 01:03 Status ED Status: With Doctor
[2017-11-11] MEDS ORDERED: Temazepam 15 MG Capsule PO PRN (02:54)
[2017-11-11] MEDS ORDERED: Dextrose 50% in Water 50 ML Vial IV.PUSH PRN (02:54)
[2017-11-11] MEDS ORDERED: Bisacodyl 10 MG Supp RECTAL PRN (02:54)
[2017-11-11] MEDS ORDERED: Acetaminophen 325 MG Tablet PO PRN (02:54)
[2017-11-11 03:01] LABS: Activated Partial Thrombo Time 25.4 sec (24.3-30.1); Prothrombin Time 10.6 sec (9.8-11.6)
[2017-11-11] MEDS: Sod Chloride 0.9% Inj 1,000 ML IV.CONT SCH ×2 (03:54→13:57)
[2017-11-11] MEDS: Insulin NovoLOG Aspart Correctional Sugar Inj SQ SCH ×4 (08:01→21:17)
[2017-11-11] MEDS: Senna/Docusate Sodium 8.6/50 MG Tablet PO SCH ×2 (09:52→21:17)
--- NOTE | 2017-11-11 10:40 | P.HPIM ---
History of Present Illness Primary Care Physician: Henrry Viveros Chief Complaint: Bright red blood per rectum History of Present Illness: This patient is a pleasant 87-year-old female who has acute onset of bright red blood per rectum for 1 day with associated lower abdominal cramping. Cramping is severe and intermittent not with any associated aggravating or relieving factors. She has had episode of this before about a year or 2 ago. She had endoscopy completed in which she was told she had some rectal "pouches ". Since that time she has been feeling well. She had an episode of bleeding this morning on the unit. She notes no recent change in her diet and lives independently. Patient been recommended for observation to the emergency room due to these complaints. - Diagnosis (1) GI bleed (2) DM2 (diabetes mellitus, type 2) (3) HTN (hypertension) (4) Urinary retention Inpatient Certification: I certify that the inpatient services were ordered in accordance with Medicare regulations governing the order. This includes certification that hospital inpatient services are reasonable and necessary and in the case of services not specified as inpatient-only under 42 CFR 419.22(n), that they are appropriately provided as inpatient services in accordance to with the 2-midnight benchmark under 43 CFR 412.3(e) Review of Systems All other systems reviewed negative except as stated in HPI Gastrointestinal: Reports bright, red blood in stools, Reports cramping, Reports vomiting PMFSH - History History Provided By: Patient - Medical History Medical History: Medical History (Last Updated 11/11/17 @ 10:28 by Amparo Garcia MD) Abnormal stools Appendicitis Asthma Breast cancer Carotid artery disease Colitis Diabetes Diminished hearing High blood cholesterol Hypertension Menopause Thyroid disease Urinary retention Vascular insufficiency of extremity - Surgical History Surgical History: Surgical History (Last Reviewed 11/11/17 @ 02:40 by [place] Hernandez) H/O lumpectomy History of parotid gland removal Hx of tonsillectomy - Tobacco History Second Hand Smoke Exposure: No Tobacco Use In Past 30 Days: No Smoking Status: Former smoker Tobacco Type: Cigarettes - Alcohol History How Often Do You Have a Drink Containing Alcohol: Never - Substance Use History Substance History: No History of Abuse - Travel History Recent Travel in the [place] Within the Last 8 Weeks: No Recent Travel Out of the Country Within the Last 8 Weeks: No - Immunization History Tetanus Immunization: <5 Years Hx Influenza Vaccine This Season: No Medications and Allergies Active Medications: Active Medications Acetaminophen (Tylenol) 650 mg PO Q4H PRN PRN Reason: FEVER/PAIN 1-2 Al Hydroxide/Mg Hydroxide (Milk Of Magnesia Liq) 30 ml PO Q12H PRN PRN Reason: Mild Constipation Bisacodyl (Dulcolax Supp) 10 mg RECTAL DAILY PRN PRN Reason: SEVERE CONSITIPATION Dextrose (D50w Vial) 50 ml IV.PUSH UNSCH PRN PRN Reason: PER HYPOGLYCEMIA PROTOCOL Glucagon (Glucagon Inj) 1 mg OTHER PRN PRN PRN Reason: for Hypoglycemia Protocol Sodium Chloride (Ns Inj) 1,000 mls @ 100 mls/hr IV.CONT .Q10H [facility] Last Admin: 11/11/17 03:54 Dose: 100 mls/hr Insulin Aspart (Novolog Insulin Suppl Scale Inj) 0 unit SQ ACHS [facility]; Protocol Last Admin: 11/11/17 08:01 Dose: Not Given Lactulose (Lactulose Liq) 30 ml PO DAILY PRN PRN Reason: SEVERE CONSITIPATION Metoclopramide HCl (Reglan Inj) 5 mg IV.PUSH Q6HR PRN; Protocol PRN Reason: NAUSEA OR VOMITING Senna/Docusate Sodium (Nelda-Colace) 1 tab PO BID [facility] Last Admin: 11/11/17 09:52 Dose: 1 tab Sennosides (Senokot) 17.2 mg PO Q12H PRN PRN Reason: Moderate Constipation Temazepam (Restoril) 15 mg PO HS PRN PRN Reason: INSOMNIA Allergies Allergy/AdvReac Type Severity Reaction Status Date / Time penicillin G Allergy Intermediate Itching Verified 11/11/17 02:07 Sulfa (Sulfonamide Allergy Intermediate Hives Verified 11/11/17 02:07 Antibiotics) ciprofloxacin Allergy Unknown Altered Verified 11/11/17 02:07 Sense of Taste clindamycin Allergy Unknown Altered Verified 11/11/17 02:07 Sense of Taste ezetimibe Allergy Unknown Altered Verified 11/11/17 02:07 Sense of Taste metformin Allergy Unknown Altered Verified 11/11/17 02:07 Sense of Taste clonidine AdvReac Intermediate Altered Verified 11/11/17 02:07 Sense of Taste STATINS Allergy Severe Altered Uncoded 11/11/17 02:07 Sense of Taste Home Medications Medication Instructions Recorded Confirmed Type acarbose 50 mg PO BID 11/11/17 11/11/17 History amlodipine 5 mg PO DAILY 11/11/17 11/11/17 History aspirin [Aspir-81] 81 mg PO DAILY 11/11/17 11/11/17 History atenolol 25 mg PO BID 11/11/17 11/11/17 History enalapril maleate 20 mg PO BID 11/11/17 11/11/17 History insulin NPH isoph U-100 human 42 unit SUB-Q QPM 11/11/17 11/11/17 History [Novolin N NPH U-100 Insulin] levothyroxine 88 mcg PO DAILY 11/11/17 11/11/17 History tamsulosin 0.4 mg PO DAILY 11/11/17 11/11/17 History terazosin 1 mg PO BID 11/11/17 11/11/17 History Exam Vital signs: Vital Signs 11/11/17 01:03 11/11/17 01:48 11/11/17 02:00 Temperature 97.6 F Pulse Rate 78 78 Respiratory Rate 18 Blood Pressure 156/70 H Pulse Oximetry 96 96 96 11/11/17 04:45 11/11/17 05:36 11/11/17 07:45 Temperature 97.9 F Pulse Rate 90 73 Respiratory Rate 18 Blood Pressure 140/63 Pulse Oximetry 93 L 94 L 11/11/17 08:00 Temperature 97.3 F L Pulse Rate 76 Respiratory Rate 18 Blood Pressure 151/67 H Pulse Oximetry 95 Intake & Output 11/10/17 11/11/17 11/11/17 18:59 06:59 18:59 Intake Total 1000 / 1000 Balance 1000 / 1000 Weight 83.4 kg Intake: IV 1000 / 1000 NS Inj 1,000 ML @ Wide Open IV. 1000 / 1000 SIG BOLUS ONE Rx#:[id number] Other: Date of Last Bowel Movement 11/11/17 11/11/17 # Bowel Movements 1 Weight On Admission 83.4 kg Narrative: GENERAL: Patient calm resting and without complaints SKIN: Warm and dry. No rashes or ecchymotic injuries EYES: Pupils equal and round. No scleral icterus. No injection or drainage. ENT: External ear exam normal. No acute nasal bleeding or discharge. Mucous membranes pink and moist. CARDIOVASCULAR: Regular rate and rhythm. No murmurs gallops or rubs appreciated RESPIRATORY: Good air flow and effort without accessory muscle use. Clear to auscultation. Breath sounds equal bilaterally. GASTROINTESTINAL: Abdomen soft, mildly tender in the lower quadrant, nondistended. Hepatic and splenic margins not palpable. MUSCULOSKELETAL: Extremities without clubbing, cyanosis, or edema. No obvious deformities. NEUROLOGICAL: Awake and alert. No obvious cranial nerve deficits. Motor grossly within normal limits. Five out of 5 muscle strength in the arms and legs. Normal speech. Results - Labs CBC & Chem 7: 11/11/17 01:35 11/11/17 01:35 Labs: Short CBC 11/11/17 Range/Units 01:35 WBC 10.3 (4.0-11.0) th/mm3 Hgb 12.8 (11.6-15.3) gm/dL Hct 39.5 (35.0-46.0) % Plt Count 144 L (150-450) th/mm3 BMP 11/11/17 01:35 Sodium 139 Potassium 3.9 Chloride 106 Carbon Dioxide 25.1 BUN 31 H Creatinine 0.96 Calcium 9.1 Liver Function 11/11/17 Range/Units 01:35 Total Bilirubin 0.6 (0.2-1.0) mg/dL AST 10 L (15-37) U/L ALT 16 (10-53) U/L Alkaline Phosphatase 85 (45-117) U/L Albumin 3.5 (3.4-5.0) g/dL - Imaging Impressions Abdomen/Pelvis CT 11/11/17 01:27 CONCLUSION: 1. Diverticulosis without diverticulitis. 2. Cholelithiasis. Caprini VTE Risk Assessment Caprini VTE Risk Assessment: Moderate/High Risk (score >= 2) VTE Pharmacological Exception Reason: Active bleeding Caprini Risk Assessment Model: Point Value = 1 Point Value = 2 Point Value = 3 Point Value = 5 Age 41-60 Minor surgery BMI > 25 kg/m2 Swollen legs Varicose veins or History of unexplained or recurrent spontaneous Oral contraceptives or hormone replacement Sepsis (< 1 month) Serious lung disease, including pneumonia (< 1 month) Abnormal pulmonary function Acute myocardial infarction Congestive heart failure (< 1 month) History of inflammatory bowel disease Medical patient at bed rest Age 61-74 Arthroscopic surgery Major open surgery (> 45 min) Laparoscopic surgery (> 45 min) Malignancy Confined to bed (> 72 hours) Immobilizing plaster cast Central venous access Age >= 75 History of VTE Family history of VTE Factor V Leiden Prothrombin [id number] Lupus anticoagulant Anticardiolipin antibodies Elevated serum homocysteine Heparin-induced thrombocytopenia Other congenital or acquired thrombophilia Stroke (< 1 month) Elective arthroplasty Hip, pelvis, or leg fracture Acute spinal cord injury (< 1 month) Prophylaxis Regimen: Total Risk Factor Score Risk Level Prophylaxis Regimen 0-1 Low Early ambulation 2 Moderate Order ONE of the following: *Sequential Compression Device (SCD) *Heparin 5000 units SQ BID 3-4 Higher Order ONE of the following medications: *Heparin 5000 units SQ TID *Enoxaparin/Lovenox 40 mg SQ daily (WT < 150 kg, CrCl > 30 mL/min) *Enoxaparin/Lovenox 30 mg SQ daily (WT < 150 kg, CrCl > 10-29 mL/min) *Enoxaparin/Lovenox 30 mg SQ BID (WT < 150 kg, CrCl > 30 mL/min) AND/OR *Sequential Compression Device (SCD) 5 or more Highest Order ONE of the following medications: *Heparin 5000 units SQ TID (Preferred with Epidurals) *Enoxaparin/Lovenox 40 mg SQ daily (WT < 150 kg, CrCl > 30 mL/min) *Enoxaparin/Lovenox 30 mg SQ daily (WT < 150 kg, CrCl > 10-29 mL/min) *Enoxaparin/Lovenox 30 mg SQ BID (WT < 150 kg, CrCl > 30 mL/min) AND *Sequential Compression Device (SCD) Assessment and Plan - Assessment (1) GI bleed Code(s): K92.2 - Gastrointestinal hemorrhage, unspecified Status: Acute Plan: Patient with bright red blood per rectum which is unexplained. Follow with endoscopy team Diverticular bleeding is usually painless and this patient has associated pain. No inflammation seen on imaging. Continue supportive care and follow him with (2) DM2 (diabetes mellitus, type 2) Code(s): E11.9 - Type 2 diabetes mellitus without complications Status: Acute Plan: currently npo, when tolerating diet Patient will continue with diabetic diet and sliding scale Patient on acarbose and nph which will likely continue (3) HTN (hypertension) Code(s): I10 - Essential (primary) hypertension Status: Acute Plan: controlled currently, continue home atenolol and enalapril (4) Urinary retention Code(s): R33.9 - Retention of urine, unspecified Status: Acute Plan: Patient on tamsulosin and terazosin and retrieved urology as an outpatient - Plan Discharge Plannin-2 days pending progress H&P: Quality - VTE Deep Vein Thrombosis/Pulmonary Embolism Present on Admission: No
[2017-11-11] MEDS: Levothyroxine 88 MCG Tablet PO SCH (11:48)
[2017-11-11] MEDS: Atenolol 25 MG Tablet PO SCH (21:19)
[2017-11-12] MEDS: Sod Chloride 0.9% Inj 1,000 ML IV.CONT SCH (01:16)
[2017-11-12] MEDS: Levothyroxine 88 MCG Tablet PO SCH (06:29)
[2017-11-12 07:08] LABS: Baso % (Auto) 0.5 % (0.0-2.0); Eos % (Auto) 0.1 % (0.0-4.0); Hematocrit 38.6 % (35.0-46.0); Hemoglobin 12.6 gm/dL (11.6-15.3); Lymph # (Auto) 1.5 th/mm3 (1.0-4.8); Lymph % (Auto) 22.1 % (9.0-44.0); Mean Corpuscular HGB Conc 32.6 % (32.0-36.0); Mean Corpuscular Hemoglobin 27.3 pg (27.0-34.0); Mean Corpuscular Volume 83.6 fL (80.0-100.0); Mean Platelet Volume 13.1 fL (7.0-11.0); Mono # (Auto) 0.5 th/mm3 (0.0-0.9); Mono % (Auto) 7.2 % (0.0-8.0); Neut # (Auto) 4.7 th/mm3 (1.8-7.7); Neut % (Auto) 70.1 % (16.0-70.0); Platelet Count 151 th/mm3 (150-450); Red Blood Count 4.62 mil/mm3 (4.00-5.30); White Blood Count 6.7 th/mm3 (4.0-11.0)
[2017-11-12 07:12] LABS: Chloride 110 meq/L (98-107); Potassium 3.9 meq/L (3.5-5.1); Sodium 143 meq/L (136-145)
[2017-11-12 07:15] LABS: Albumin 3.1 g/dL (3.4-5.0); Anion Gap 8 meq/L (5-15); Calcium 8.3 mg/dL (8.5-10.1); Carbon Dioxide 24.8 meq/L (21.0-32.0); Glucose,Random 209 mg/dL (74-106)
[2017-11-12 07:18] LABS: Blood Urea Nitrogen 17 mg/dL (7-18)
[2017-11-12 07:19] LABS: Alanine Aminotransferase 13 U/L (10-53); Aspartate Aminotransferase 8 U/L (15-37)
[2017-11-12 07:22] LABS: Alkaline Phosphatase 68 U/L (45-117); Glomerular Filtration Rate 68 mL/min (>89); Total Protein 6.2 g/dL (6.4-8.2)
[2017-11-12] MEDS: Insulin NovoLOG Aspart Correctional Sugar Inj SQ SCH (07:45)
[2017-11-12] MEDS: Atenolol 25 MG Tablet PO SCH (08:09)
[2017-11-12] MEDS: Senna/Docusate Sodium 8.6/50 MG Tablet PO SCH (08:09)
[2017-11-12] MEDS ORDERED: amLODIPine 5 MG Tablet PO SCH (09:00)
--- NOTE | 2017-11-12 09:31 | P.PNIM ---
Subjective Interval history: Patient seen today in follow-up for GI bleed. Symptoms improved. Hemoglobin stable. Discharge plan discussed with patient for outpatient endoscopy Physical Exam Vital signs: Vital Signs 11/11/17 12:00 11/11/17 15:55 11/11/17 19:25 Temperature 97.1 F L 97.5 F L Pulse Rate 72 66 Respiratory Rate 18 18 Blood Pressure 147/71 H 144/64 H Pulse Oximetry 95 95 94 L 11/11/17 20:00 11/12/17 00:00 11/12/17 07:00 Temperature 98.3 F 98.0 F Pulse Rate 70 63 Respiratory Rate 19 18 Blood Pressure 145/63 H 127/59 L Pulse Oximetry 92 L 92 L 96 11/12/17 08:36 Temperature Pulse Rate Respiratory Rate Blood Pressure Pulse Oximetry 92 L Intake & Output 11/11/17 11/12/17 11/12/17 18:59 06:59 18:59 Intake Total 1600 / 1600 1240 / 1240 779 / 779 Balance 1600 / 1600 1240 / 1240 779 / 779 Weight 83.6 kg Intake: IV 1000 / 1000 1000 / 1000 779 / 779 NS Inj 1,000 ML @ 100 mls/hr IV 1000 / 1000 1000 / 1000 779 / 779 .CONT .Q10H MAIK Rx#:[id number] Oral 600 / 600 240 / 240 Other: # Voids 4 4 Date of Last Bowel Movement 11/11/17 11/12/17 # Bowel Movements 2 Narrative: GENERAL: Patient calm resting and without complaints SKIN: Warm and dry. No rashes or ecchymotic injuries EYES: Pupils equal and round. No scleral icterus. No injection or drainage. ENT: External ear exam normal. No acute nasal bleeding or discharge. Mucous membranes pink and moist. CARDIOVASCULAR: Regular rate and rhythm. No murmurs gallops or rubs appreciated RESPIRATORY: Good air flow and effort without accessory muscle use. Clear to auscultation. Breath sounds equal bilaterally. GASTROINTESTINAL: Abdomen soft, non-tender, nondistended. Hepatic and splenic margins not palpable. MUSCULOSKELETAL: Extremities without clubbing, cyanosis, or edema. No obvious deformities. NEUROLOGICAL: Awake and alert. No obvious cranial nerve deficits. Motor grossly within normal limits. Five out of 5 muscle strength in the arms and legs. Normal speech. Results - Labs CBC & Chem 7: 11/12/17 06:32 11/12/17 06:32 Laboratory Results - last 24 hr 11/11/17 11/11/17 11/11/17 11:20 16:00 21:03 CBC w Diff WBC RBC Hgb Hct MCV MCH MCHC RDW Plt Count MPV Neut % (Auto) Lymph % (Auto) [place] % (Auto) Eos % (Auto) Baso % (Auto) Neut # (Auto) Lymph # (Auto) [place] # (Auto) Eos # (Auto) Baso # (Auto) WBC Differential Differential Comment Sodium Potassium Chloride Carbon Dioxide Anion Gap BUN Creatinine Estimated GFR POC Glucose 217 H 153 H 204 H Random Glucose Calcium Total Bilirubin AST ALT Alkaline Phosphatase Total Protein Albumin 11/12/17 11/12/17 11/12/17 06:32 06:32 07:31 CBC w Diff Auto diff final WBC 6.7 RBC 4.62 Hgb 12.6 Hct 38.6 MCV 83.6 MCH 27.3 MCHC 32.6 RDW 14.0 Plt Count 151 MPV 13.1 H Neut % (Auto) 70.1 H Lymph % (Auto) 22.1 [place] % (Auto) 7.2 Eos % (Auto) 0.1 Baso % (Auto) 0.5 Neut # (Auto) 4.7 Lymph # (Auto) 1.5 [place] # (Auto) 0.5 Eos # (Auto) 0.0 Baso # (Auto) 0.0 WBC Differential . Differential Comment . Sodium 143 Potassium 3.9 Chloride 110 H Carbon Dioxide 24.8 Anion Gap 8 BUN 17 Creatinine 0.80 Estimated GFR 68 L POC Glucose 213 H Random Glucose 209 H Calcium 8.3 L D Total Bilirubin 0.9 AST 8 L ALT 13 Alkaline Phosphatase 68 Total Protein 6.2 L Albumin 3.1 L Assessment and Plan - Assessment (1) GI bleed Code(s): K92.2 - Gastrointestinal hemorrhage, unspecified Status: Acute Plan: Resolved bright red blood per rectum, and outpatient endoscopy scheduled for GI (2) DM2 (diabetes mellitus, type 2) Code(s): E11.9 - Type 2 diabetes mellitus without complications Status: Chronic Plan: Diet tolerated. Continue ADA management (3) HTN (hypertension) Code(s): I10 - Essential (primary) hypertension Status: Chronic Plan: controlled currently, continue home atenolol and enalapril (4) Urinary retention Code(s): R33.9 - Retention of urine, unspecified Status: Chronic Plan: Patient on tamsulosin and terazosin and retrieved urology as an outpatient - Plan Discharge Planning: Discharge home Diet diabetic Activity as tolerated
== END 2017-11-12 10:18 | disposition home or self-care (01) ==
LOC: PH3 01:02 → PHED 01:02 → PHEDA 01:02 → PH3 04:46
PROVIDERS: ADMIT Hospitalist; ATTEND Hospitalist
DX: I10 Essential (primary) hypertension; E07.9 Disorder of thyroid, unspecified; Z87.891 Personal history of nicotine dependence; K80.20 Calculus of gallbladder without cholecystitis without obstruction; E11.9 Type 2 diabetes mellitus without complications; Z85.3 Personal history of malignant neoplasm of breast; K92.2 Gastrointestinal hemorrhage, unspecified; H91.90 Unspecified hearing loss, unspecified ear; J45.909 Unspecified asthma, uncomplicated; K57.91 Diverticulosis of intestine, part unspecified, without perforation or abscess with bleeding; R33.9 Retention of urine, unspecified